=== PATIENT | male | born 1980 | race Two or more races ===

== ENCOUNTER 2021-01-21 21:43 | Emergency (ER) | payer SELFPAY ==
[~2021-01-21] VITALS: Ht 177.8 cm; Wt 75.3 kg
[2021-01-21 21:55] VITALS: BP 129/84
[2021-01-21] MEDS ORDERED: HYDROcodone/APAP 5/325 TABLET ONE (22:20)
[2021-01-21] MEDS ORDERED: LIDOCAINE-MPF 1%, 5ML ONE (22:20)
[2021-01-21] MEDS ORDERED: HYDROcodone/APAP 5/325 TABLET PO ONE (22:30)
[2021-01-21] MEDS ORDERED: LIDOCAINE-MPF 1%, 5ML INFIL ONE (22:30)
[2021-01-21] MEDS ORDERED: NEOSPORIN OINT. PKT 1 PACKET ONE (22:58)
== END 2021-01-21 23:18 | disposition home or self-care (01) ==
LOC: ED 22:00
DX: L60.0 Ingrowing nail (principal); B35.1 Tinea unguium
CPT/HCPCS: 11730; 99284